=== PATIENT | male | born 1990 | race Caucasian/White ===

== ENCOUNTER 2020-09-11 22:12 | Inpatient (IN) ==
[2020-09-12] MEDS ORDERED: Ondansetron ODT 4 mg TAB 4 MG TAB PO ONE (00:38)
[2020-09-12 00:53] LABS: ALT 24 U/L (7-52); Albumin 4.1 g/dL (3.2-5.2); Albumin/Globulin Ratio 1.3 (1-3); Alkaline Phosphatase 46 U/L (34-104); Blood Urea Nitrogen 9 mg/dL (6-24); CO2 Carbon Dioxide 26 mmol/L (22-32); Chloride 104 mmol/L (101-111); EGFR African American 79.7 (>60); EGFR Non-African American 65.8 (>60); Globulin 3.1 g/dL (2-4); Glucose 109 mg/dL (70-100); Sodium 140 mmol/L (135-145); Total Protein 7.2 g/dL (6.4-8.9)
[2020-09-12 00:56] LABS: Alcohol, S 53 mg/dL (<10); Salicylate < 2.50 mg/dL (<30)
[2020-09-12 00:57] LABS: Acetaminophen < 15 mcg/mL
[2020-09-12 01:13] LABS: TSH Ultra Thyroid Stim Horm 1.05 mcIU/mL (0.34-5.60)
[2020-09-12 01:24] LABS: ABS Eosinophils 0.2 10^3/ul (0-0.6); ABS Lymphocytes 3.1 10^3/ul (1.0-4.8); ABS Monocytes 0.8 10^3/ul (0-0.8); ABS Neutrophils 4.8 10^3/ul (1.5-7.7); Eosinophil % 2.3 %; Hematocrit 47 % (42-52); Hemoglobin 16.7 g/dL (14.0-18.0); Lymphocyte % 34.6 %; Mean Corpuscular HGB Conc 36 g/dL (31-36); Mean Corpuscular Hemoglobin 31 pg (27-31); Mean Corpuscular Volume 87 fL (80-94); Mean Platelet Volume 7.1 fL (7.4-10.4); Nucleated Red Blood Cells % 0.1; Platelet Count 296 10^3/uL (150-450); Red Blood Count 5.39 10^6 /uL (4.18-5.48); Red Cell Distribution Width 14 % (10-15); White Blood Count 8.9 10^3/uL (3.5-10.8)
[2020-09-12 02:13] LABS: AST 18 U/L (13-39); Anion Gap 10 mmol/L (2-11); Potassium 3.5 mmol/L (3.5-5.0)
[2020-09-12 04:53] LABS: Urine Appearance Clear; Urine Bilirubin Negative (Negative); Urine Blood Negative (Negative); Urine Color Yellow; Urine Glucose Negative (Negative); Urine Ketones Negative (Negative); Urine Nitrite Negative (Negative); Urine Protein 1+(30 mg/dL) (Negative); Urine Specific Gravity 1.018 (1.002-1.030); Urine Urobilinogen Positive (Negative)
[2020-09-12 05:06] LABS: Urine Bacteria Absent (Absent); Urine Red Blood Cell Trace(0-2/hpf) (Absent); Urine White Blood Cell Trace(0-5/hpf) (Absent)
[2020-09-12 05:14] LABS: Urine Benzodiazepine Screen None Detected (None Detect); Urine Cannabinoids Screen None Detected (None Detect); Urine Opiates Screen None Detected (None Detect)
[2020-09-12] MEDS ORDERED: Al Hydrox/Mg Hydrox/Simet LIQ 30 ML UDC PO PRN (10:09)
[2020-09-12] MEDS: Nicotine PATCH 21 MG/24 HR PATCH TRANSDERM SCH (12:53)
[2020-09-12 13:22] LABS: Lithium 0.51 mmol/L (0.6-1.2)
[2020-09-13] MEDS: Vitamin THERAPEUTIC TAB PO SCH (09:05)
[2020-09-13] MEDS: Nicotine PATCH 21 MG/24 HR PATCH TRANSDERM SCH ×2 (09:08→14:53)
[2020-09-13] MEDS: Nicotine GUM 2MG FRUIT FLAVOR PO PRN (23:07)
[2020-09-14] MEDS: Vitamin THERAPEUTIC TAB PO SCH (08:15)
[2020-09-14] MEDS: Nicotine PATCH 21 MG/24 HR PATCH TRANSDERM SCH (08:16)
[2020-09-14] MEDS: Nicotine GUM 2MG FRUIT FLAVOR PO PRN ×2 (18:44→20:49)
[2020-09-15] MEDS: Vitamin THERAPEUTIC TAB PO SCH (08:44)
[2020-09-15] MEDS: Nicotine PATCH 21 MG/24 HR PATCH TRANSDERM SCH (08:47)
[2020-09-15] MEDS: Nicotine GUM 2MG FRUIT FLAVOR PO PRN (20:01)
[2020-09-16] MEDS: Nicotine PATCH 21 MG/24 HR PATCH TRANSDERM SCH (07:53)
[2020-09-16] MEDS: Vitamin THERAPEUTIC TAB PO SCH (07:53)
[2020-09-17] MEDS: Nicotine PATCH 21 MG/24 HR PATCH TRANSDERM SCH (08:46)
[2020-09-17] MEDS: Vitamin THERAPEUTIC TAB PO SCH (08:47)
[2020-09-17 09:44] VITALS: BP 123/71
== END 2020-09-17 13:08 | disposition home or self-care (01) | DRG 753 ==
LOC: ED 22:12 → BSU 09-12 10:09 → ED 09-12 10:46 → BSU 09-13 21:21
PROVIDERS: ADMIT Psychiatry & Neurology Psychiatry; ATTEND Psychiatry & Neurology Psychiatry